=== PATIENT | female | born 1960 | race Caucasian/White ===

== ENCOUNTER 2023-07-28 07:35 | Outpatient (CLI) | payer OTHER | END 2023-07-28 07:36 | disposition home or self-care (01) | LOC: BICMAMMO 07:35 | PROVIDERS: ATTEND Family Medicine | DX: Z12.31 Encounter for screening mammogram for malignant neoplasm of breast (principal); N64.89 Other specified disorders of breast | CPT/HCPCS: 77067 ==

== ENCOUNTER 2023-09-15 07:46 | Outpatient (CLI) | payer OTHER | END 2023-09-15 07:47 | disposition home or self-care (01) | LOC: BICMAMMO 07:46 | PROVIDERS: ATTEND Family Medicine | DX: N64.89 Other specified disorders of breast (principal) | CPT/HCPCS: G0279 ==